=== PATIENT | female | born 1965 ===

== ENCOUNTER 2017-04-03 07:06 | Day surgery (SDC) | payer BC ==
[~2017-04-03] VITALS: Ht 172.7 cm; Wt 105.3 kg
[2017-04-03 07:34] VITALS: BP 137/62; PULSE 66; TEMP 97.6
[2017-04-03] MEDS ORDERED: GLUCOPHAGE1000 MG PO (07:54)
[2017-04-03] MEDS ORDERED: DIFLUCAN150 MG PO (07:55)
[2017-04-03] MEDS ORDERED: PRAVACHOL 40MG40 MG PO (07:56)
[2017-04-03] MEDS ORDERED: CELEXA40 MG PO (07:56)
[2017-04-03] MEDS ORDERED: JANUVIA50 MG PO (07:57)
[2017-04-03 10:10] VITALS: BP 126/71; PULSE 62; TEMP 97.7
[2017-04-03] MEDS ORDERED: NORCO 325 MG-51 TAB PO (10:20)
[2017-04-03 10:25] VITALS: BP 142/78; PULSE 55
[2017-04-03 10:40] VITALS: BP 122/70; PULSE 51
[2017-04-03 10:45] VITALS: BP 122/70; PULSE 57
== END 2017-04-03 10:55 | disposition home or self-care (01) ==
LOC: SDCO 07:06
DX: M75.02 Adhesive capsulitis of left shoulder (principal); E11.9 Type 2 diabetes mellitus without complications; F32.9 Major depressive disorder, single episode, unspecified; E78.5 Hyperlipidemia, unspecified; F17.210 Nicotine dependence, cigarettes, uncomplicated; Z79.84 Long term (current) use of oral hypoglycemic drugs; Z83.3 Family history of diabetes mellitus
CPT/HCPCS: J1815; J1885; J2405; J2704; J3010; J3301; J7030

== ENCOUNTER → 2017-08-22 | Outpatient (CLI) | payer BC ==
[~2017-08-22] MED LIST: CELEXA40 MG PO; DIFLUCAN150 MG PO; GLUCOPHAGE1000 MG PO; JANUVIA50 MG PO; NORCO 325 MG-51 TAB PO; PRAVACHOL 40MG40 MG PO
== END ==
LOC: BHSO 10:54
DX: F33.0 Major depressive disorder, recurrent, mild (principal)

== ENCOUNTER → 2017-09-19 | Outpatient (CLI) | payer BC | LOC: BHSO 14:57 | DX: F33.0 Major depressive disorder, recurrent, mild (principal) ==

== ENCOUNTER → 2017-09-24 | Outpatient (CLI) | payer BC | LOC: MC.RAD 15:15 | DX: Z12.31 Encounter for screening mammogram for malignant neoplasm of breast (principal) ==

== ENCOUNTER → 2017-10-03 | Outpatient (CLI) | payer BC | LOC: BHSO 15:57 | DX: F33.1 Major depressive disorder, recurrent, moderate (principal) ==

== ENCOUNTER → 2017-10-17 | Outpatient (CLI) | payer BC | LOC: BHSO 15:55 | DX: F33.0 Major depressive disorder, recurrent, mild (principal) ==

== ENCOUNTER → 2017-11-13 | Outpatient (CLI) | payer BC | LOC: BHSO 15:53 | DX: F33.0 Major depressive disorder, recurrent, mild (principal) ==

== ENCOUNTER → 2017-11-26 | Outpatient (CLI) | payer BC | LOC: BHSO 15:46 | DX: F33.0 Major depressive disorder, recurrent, mild (principal) ==

== ENCOUNTER → 2020-08-26 | Outpatient (CLI) | payer BC | LOC: ZCOL.LAB 16:24 | DX: L97.529 Non-pressure chronic ulcer of other part of left foot with unspecified severity (principal) ==